=== PATIENT | male | born 1975 | race Caucasian/White ===

== ENCOUNTER → 2017-08-09 | Outpatient (REF) | payer OTHER ==
[2017-08-09 14:43] LABS: CHLAMYDIA DNA AMPLIFICATION NEGATIVE (NEGATIVE); GC DNA AMPLIFICATION NEGATIVE (NEGATIVE)
== END ==
LOC: M LAB REF 11:59
DX: N39.0 Urinary tract infection, site not specified (principal)
CPT/HCPCS: 87186

== ENCOUNTER 2018-07-20 11:25 | Emergency (ER) | payer OTHER ==
[~2018-07-20] VITALS: Ht 167.6 cm; Wt 81.8 kg
[2018-07-20 12:12] LABS: BASO % 0.3 % (0.0-1.0); EOS # 0.1 10^3/uL (0.0-0.50); EOS % 1.6 % (0.0-3.0); HEMATOCRIT 47.1 % (42.0-52.0); HEMOGLOBIN 16.5 g/dl (13.5-17.5); LYMPH # 1.2 10^3/uL (1.5-4.5); LYMPH % 18.5 % (24.0-44.0); MEAN CORPUSCULAR HEMOGLOBIN 31.6 pg (27.0-33.0); MEAN CORPUSCULAR VOLUME 90.2 fl (80.0-96.0); MONO # 0.5 10^3/uL (0.0-0.8); MONO % 7.7 % (0.0-5.0); NEUTROPHILS # 4.6 10^3/uL (1.8-7.7); NEUTROPHILS % 71.4 % (36.0-66.0); PLATELET COUNT, AUTOMATED 232 10^3/uL (150-450); RED BLOOD COUNT 5.22 10^6/uL (4.30-6.10); WHITE BLOOD COUNT 6.4 10^3/uL (4.0-10.0)
[2018-07-20 12:23] LABS: INR 0.98; PROTHROMBIN TIME 13.1 SECONDS (12.1-14.4)
[2018-07-20 12:38] LABS: ALBUMIN 4.4 GM/DL (3.2-5.2); ALT/SGPT 49 U/L (12-78); BILIRUBIN,DIRECT 0.1 MG/DL (0.0-0.2); BILIRUBIN,TOTAL 0.7 MG/DL (0.2-1.0); BLOOD UREA NITROGEN 13 MG/DL (7-18); CALCIUM LEVEL 8.8 MG/DL (8.5-10.1); CARBON DIOXIDE LEVEL 28 MEQ/L (21-32); CHLORIDE LEVEL 103 MEQ/L (98-107); CPK CREATINE PHOSPHOKINASE 283 U/L (39-308); CREATININE FOR GFR 1.13 MG/DL (0.70-1.30); GLOMERULAR FILTRATION RATE > 60.0 (>60); GLUCOSE, FASTING 108 MG/DL (70-100); LIPASE 191 U/L (73-393); MB/CK RELATIVE INDEX 7.88 (< OR =4); NT-PRO BNP 282 PG/ML (<125); POTASSIUM SERUM 3.5 MEQ/L (3.5-5.1); SODIUM LEVEL 138 MEQ/L (136-145); TOTAL PROTEIN 7.7 GM/DL (6.4-8.2); TROPONIN I 1.35 NG/ML (< 0.10)
[2018-07-20] MEDS ORDERED: NITROGLYCERIN 0.4 MG SUBL TABLET SL STA (12:44)
[2018-07-20] MEDS ORDERED: MORPHINE 4 MG/ML 1ML VIAL/SYRINGE (J2270) IV ONE (12:45)
[2018-07-20] MEDS ORDERED: ASPIRIN 81 MG CHEW TABLET PO ONE (12:45)
[2018-07-20 12:48] VITALS: BP 149/78
[2018-07-20] MEDS ORDERED: ONDANSETRON 4MG/2ML VIAL (J2405) IV ONE (13:00)
[2018-07-20] MEDS ORDERED: MORPHINE 2 MG/ML 1ML SYRINGE (J2270) IV ONE (13:00)
[2018-07-20] MEDS ORDERED: NS 500 ML IV ONE (13:00)
[2018-07-20] MEDS ORDERED: HEPARIN SOD (PORCINE) 5000 UNITS/ML VIAL IV PRN (13:30)
[2018-07-20] MEDS ORDERED: HEPARIN DRIP 25,000 UNITS in APPROPRIATE DILUENT 1 EA IV SCH (13:30)
--- NOTE | 2018-07-20 13:39 | ECGEPIP ---
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
[2018-07-20 13:55] LABS: PARTIAL THROMBOPLASTIN TIME 32.6 SECONDS (25.4-37.6)
--- NOTE | 2018-07-20 13:55 | REP ---
Chest one-view HISTORY: Chest pain Comparison: 07/10/2018 The lungs are clear. The heart is normal in size. The pulmonary vasculature is normal in appearance. Impression: No acute disease. Electronically Signed by Chris Galindo MD 07/20/2018 01:46 P
[2018-07-20 14:12] VITALS: BP 154/100
[2018-07-20 14:36] LABS: AMPHETAMINES LEVEL URINE NEGATIVE (NEGATIVE); BARBITURATES URINE NEGATIVE (NEGATIVE); BENZODIAZEPINES URINE NEGATIVE (NEGATIVE); CANNABINOIDS URINE NEGATIVE (NEGATIVE); COCAINE METABOLITE URINE NEGATIVE (NEGATIVE); METHADONE URINE NEGATIVE (NEGATIVE); OPIATES URINE POSITIVE (NEGATIVE); PHENCYCLIDINE URINE NEGATIVE (NEGATIVE)
== END 2018-07-20 14:19 | disposition short-term general hospital (02) ==
LOC: M ED 11:25
DX: I21.4 Non-ST elevation (NSTEMI) myocardial infarction (principal)
CPT/HCPCS: 71045; 80048; 80076; 80307; 82550; 82553; 83690; 83880; 84443; 84484; 85025; 85610; 85730; 93005; 93041; 94760; 96361; 96374; 96375; 96376; 99285; J2270; J2405

== ENCOUNTER 2018-08-10 09:12 | Outpatient (RCR) | payer OTHER ==
[~2018-08-10 09:12] MED LIST: ASPI81TA85 PO; ATOR80TA59 PO; BRIL90TA PO; METO1TAB87 PO; NITR0.4S14 SL
--- NOTE | 2018-08-10 11:13 | CARECAPL ---
Assessment Account #s: Initial Assessment General Diagnoses: Stent, NSTEMI Date of event: Jul 20, 2018 Physician: Char Ruffin MD Allergies: Coded Allergies: No Known Allergies (Unverified , 07/20/18) Date Entered Program: Aug 10, 2018 Risk strat for cardiac event: Low Exercise Date: Aug 10, 2018 Assessment: Initial Assessment Exercise Prescription Plan to build endurance through a monitored exercise program, to educate about cardiac risk factors Modalities initiated: Treadmill (2.5 mts 2.91 rpe 2), Cardio-Strider (will add), Nustep (will add), Arm Aerometer (1.5 mts 3.04 rpe 4), Dumbells (will add), Recumbent Bike (r2 mts 3.9 rpe 3), Elliptimill (will consider) Frequency: 2-3 Duration (Minutes) 8-15 minutes total exercise a day. 30-60 work intervals in minutes. rest intervals in minutes. Functional Capacity Goal Sustained Metabolic Equivalent of a task (MET) goal of 5.0-6.5 for 15-20 minutes. Intensity: 3-Moderate Progression (METS) Increase by: 0.5 METS every: 2 sessions Angina with ex: No Target Heart Rate rest + 35-40 betablocker therapy Resistance Training: Yes Reps: 8-12 Hypertension: Yes Hypertension controlled with: Diet Resting 140/70 Peak Exercise BP 146/80 Meds see below Medications Scheduled Aspirin (Aspir-81), 81 MG PO DAILY, (Reported) Atorvastatin Calcium (Atorvastatin Calcium), 80 MG PO DAILY, (Reported) Metoprolol Tartrate (Metoprolol Tartrate), 25 MG PO BID, (Reported) Nitroglycerin (Nitroglycerin), 0.4 MG SL ASDIRECTED, (Reported) Ticagrelor Base (Brilinta), 90 MG PO BID, (Reported) Target Goals Individual exercise Rx (1) BP 140/90 or 130/80 if DM or CKD (1) Aerobic active 30+min 5 days per week (1) Nutrition Date: Aug 10, 2018 Assessment: Initial Assessment Lipid- med/supplement Atorvastatin Calcium Diabetes Diabetes: No Weight Management Weight (lbs): 176.8 Height (inches): 66 Waist Circumference (Inches): 37 BMI: 28.4 Special Diet: low salt, mediteranean diet, low-fat Alcohol: weekly Alcohol Type: beer Alcohol Amount: 1-2 Diet Access Tool: Rate your plate Score: 40 Intervention [facility] Consult: Yes Nurse/patient discussion: Yes Dietary Goals better choices and smaller portions Target goal LDL-C<100 if triglycerides are >200 Non-HDL-C should be <130 (1) LDL-C<70 for high risk patients (4) HbA1c<7% (1) BMI<25 Waist cir<40in M/<35in F (1) Education Date: Aug 10, 2018 Assessment: Initial Assessment Learning Barriers: ready, learn Knowledge Test Score: 6 Family Support: Yes Tobacco use: No Intervention Education class schedule given: Yes Education: CAD, Risk factors, med compliance, cardiac A&P, Angina S/S, Sexuality Target Goals Complete cessation of tobacco use (1). Psychosocial Date: Aug 10, 2018 Assessment: Initial Assessment Psych Test (Initial/Discharge) Tool Used: CESD Score: 2 Intervention Physician Referral: No Stress Management Class: Yes Uses Stress Management Skills: Yes Education Education: Coping Techniques, S/S depression, Relaxation Techniques Target Goal Assess presence or absence of depression using a valid screening tool (1). Maximize coping skills (2). Positive support system (2). Patient/Program Goal Preventative Medication: Yes Aspirin, Yes Beta blockade, Yes Statin/OTR lipid Lowering Fall Risk Assess: No Provider Assessment Session Number: 1 Provider Assessment: Proceed with rehab Aggie Sosa RN Aug 10, 2018 11:13
== END 2018-08-11 ==
LOC: M CR 09:12
PROVIDERS: ATTEND Internal Medicine Cardiovascular Disease
DX: I22.2 Subsequent non-ST elevation (NSTEMI) myocardial infarction (principal); Z98.61 Coronary angioplasty status

== ENCOUNTER 2018-09-05 09:54 | Outpatient (RCR) | payer OTHER ==
--- NOTE | 2018-09-05 15:57 | CARECAPL ---
Assessment Account #s: Re-Assessment I General Diagnoses: Stent, NSTEMI Date of event: Jul 20, 2018 Physician: Char Ruffin MD Allergies: Coded Allergies: No Known Allergies (Unverified , 07/20/18) Date Entered Program: Aug 10, 2018 Risk strat for cardiac event: Low Exercise Date: Sep 05, 2018 Assessment: Re-Assessment I Exercise Prescription Plan TO EDUCATE AND BUILD ENDURANCE THROUGH MONITORED EXERCISE Modalities initiated: Treadmill (METS=4.12/RPE=3), Arm Aerometer (METS=4.6/ RPE=4), Dumbells (3#/RPE=2), Recumbent Bike (METS=3.9/RPE=4) Frequency: 3 Duration (Minutes) 30-60 minutes total exercise a day. 10-12 work intervals in minutes. 5 MIN PRN rest intervals in minutes. Functional Capacity Goal Sustained Metabolic Equivalent of a task (MET) goal of 5.0-6.5 for 15-20 minutes. Intensity: 3-Moderate Progression (METS) Increase by: METS every: sessions Angina with ex: No Target Heart Rate +35-40 BASED ON BETA KIMBERLI THERAPY Resistance Training: Yes Weight (pounds): 3 Reps: 12-15 Hypertension: Yes Hypertension controlled with: Medication Resting 130/86 Peak Exercise BP 146/84 Medications Scheduled Aspirin (Aspir-81), 81 MG PO DAILY, (Reported) Atorvastatin Calcium (Atorvastatin Calcium), 80 MG PO DAILY, (Reported) Metoprolol Tartrate (Metoprolol Tartrate), 25 MG PO BID, (Reported) Nitroglycerin (Nitroglycerin), 0.4 MG SL ASDIRECTED, (Reported) Ticagrelor Base (Brilinta), 90 MG PO BID, (Reported) Current BP 118/78 Med Change: No Intervention Resistance Training: Yes Education: Self pulse, Ex safety, S/S to report, Low NA diet, BP medication, RPE Scale, Equipment orientation, warm up/cool down, Understand BP, Physical Active Target Goals Individual exercise Rx (1) BP 140/90 or 130/80 if DM or CKD (1) Aerobic active 30+min 5 days per week (1) Nutrition Date: Sep 05, 2018 Assessment: Re-Assessment II Lipid- med/supplement ATORVASTATIN Med Change: No Diabetes Diabetes: No Monitor Blood Sugar at home: No Medication Change: No Weight Management Weight (lbs): 176.8 Special Diet: low salt, mediteranean diet, low-fat Alcohol: weekly Alcohol Type: beer Alcohol Amount: 1-2 Current Weight (pounds): 176.8 Intervention Collection Technician Consult: No Nurse/patient discussion: Yes Diet Class: Yes Referral to Diabetes education: No Referral to lipid clinic: No Referral to weight mangement p: No Education Eating Healthy Target goal LDL-C<100 if triglycerides are >200 Non-HDL-C should be <130 (1) LDL-C<70 for high risk patients (4) HbA1c<7% (1) BMI<25 Waist cir<40in M/<35in F (1) Education Date: Sep 05, 2018 Assessment: Re-Assessment I Learning Barriers: ready Family Support: Yes Tobacco use: No Tobacco Use Smokeless tobacco: No Intervention Referral to smoking cessation: No Individual education and couns: No Tobacco Adjunct: No Education class schedule given: No Attended education classes: No Education: CAD, Risk factors, med compliance, cardiac A&P, Angina S/S, Sexuality Target Goals Complete cessation of tobacco use (1). Psychosocial Date: Sep 05, 2018 Assessment: Re-Assessment I Intervention Physician Consult: No Physician Referral: No Med Change: No Stress Management Class: No Uses Stress Management Skills: Yes Education Education: Coping Techniques, S/S depression, Relaxation Techniques Target Goal Assess presence or absence of depression using a valid screening tool (1). Maximize coping skills (2). Positive support system (2). Patient/Program Goal Preventative Medication: Yes Aspirin, Yes Beta blockade, Yes Statin/OTR lipid Lowering Fall Risk Assess: Yes (NOT A FALL RISK) Provider Assessment Session Number: 6 Provider Assessment: Proceed with rehab Yannick Spencer RN Sep 05, 2018 15:57
== END 2018-09-08 ==
LOC: M CR 09:54
PROVIDERS: ATTEND Internal Medicine Cardiovascular Disease
DX: I22.2 Subsequent non-ST elevation (NSTEMI) myocardial infarction (principal); Z98.61 Coronary angioplasty status

== ENCOUNTER 2018-10-03 10:16 | Outpatient (RCR) | payer OTHER ==
--- NOTE | 2018-09-28 10:51 | CARECAPL ---
Assessment Account #s: Re-Assessment II General Diagnoses: Stent, NSTEMI Date of event: Jul 20, 2018 Physician: Char Ruffin MD Allergies: Coded Allergies: No Known Allergies (Unverified , 07/20/18) Date Entered Program: Sep 05, 2018 Risk strat for cardiac event: Low Exercise Date: Sep 28, 2018 Assessment: Re-Assessment II Exercise Prescription Modalities initiated: Treadmill, Nustep, Arm Aerometer, Dumbells, Recumbent Bike Frequency: 2-3 Duration (Minutes) minutes total exercise a day. work intervals in minutes. rest intervals in minutes. Functional Capacity Goal Sustained Metabolic Equivalent of a task (MET) goal of for minutes. Intensity: 4-Quite a bit Progression (METS) Increase by: METS every: sessions Angina with ex: No Resistance Training: Yes Weight (pounds): 4 Reps: 6-8 Medications Scheduled Aspirin (Aspir-81), 81 MG PO DAILY, (Reported) Atorvastatin Calcium (Atorvastatin Calcium), 80 MG PO DAILY, (Reported) Nitroglycerin (Nitroglycerin), 0.4 MG SL ASDIRECTED, (Reported) Ticagrelor Base (Brilinta), 90 MG PO BID, (Reported) Current BP 122/80 Med Change: No Intervention Home exercise: Type (walking, join local gym, hand weights) Resistance Training: Yes Education: Self pulse, Ex safety, S/S to report, BP medication, RPE Scale, Equipment orientation, warm up/cool down, Understand BP, Physical Active Target Goals Individual exercise Rx (1) BP 140/90 or 130/80 if DM or CKD (1) Aerobic active 30+min 5 days per week (1) Nutrition Date: Sep 28, 2018 Assessment: Re-Assessment II Medication Change: No Current Weight (pounds): 176.8 Education Eating Healthy Target goal LDL-C<100 if triglycerides are >200 Non-HDL-C should be <130 (1) LDL-C<70 for high risk patients (4) HbA1c<7% (1) BMI<25 Waist cir<40in M/<35in F (1) Education Date: Sep 28, 2018 Assessment: Re-Assessment II Family Support: Yes Intervention Education class schedule given: Yes Attended education classes: Yes Education: CAD, Risk factors, med compliance, cardiac A&P, Angina S/S, Sexuality Target Goals Complete cessation of tobacco use (1). Psychosocial Date: Sep 28, 2018 Assessment: Re-Assessment II Stress Management Class: Yes Uses Stress Management Skills: Yes Education Education: Coping Techniques, S/S depression, Relaxation Techniques Target Goal Assess presence or absence of depression using a valid screening tool (1). Maximize coping skills (2). Positive support system (2). Provider Assessment Session Number: 12 Provider Assessment: No changes Aggie Sosa RN Sep 28, 2018 10:51
== END 2018-10-09 ==
LOC: M CR 10:16
PROVIDERS: ATTEND Internal Medicine Cardiovascular Disease
DX: Z98.61 Coronary angioplasty status (principal)

== ENCOUNTER 2018-10-19 15:13 | Outpatient (RCR) | payer OTHER ==
--- NOTE | 2018-10-26 09:23 | CARECAPL ---
Assessment Account #s: Re-Assessment II (reassessment III) General Diagnoses: Stent, NSTEMI Date of event: Jul 20, 2018 Physician: Char Ruffin MD Allergies: Coded Allergies: No Known Allergies (Unverified , 07/20/18) Date Entered Program: Sep 05, 2018 Risk strat for cardiac event: Low Exercise Date: Oct 26, 2018 Assessment: Re-Assessment II (reassessment III) Exercise Prescription Plan to educate regarding the risk of cardiac disease and exercise through a monitored program Modalities initiated: Treadmill (3.5/2.5 MTS 5.13 RPE 4), Cardio-Strider (R4 MTS 3.1 RPE 4), Arm Aerometer (2.0 MTS 4.81 RPE 4), Dumbells, Recumbent Bike (R4 MTS 4.1 RPE 4 ) Duration (Minutes) 30-60minutes total exercise a day. 6-15 work intervals in minutes. prn rest intervals in minutes. Functional Capacity Goal Sustained Metabolic Equivalent of a task (MET) goal of for minutes. Intensity: 4-Quite a bit Progression (METS) Increase by: METS every: sessions Angina with ex: No Resistance Training: Yes Weight (pounds): 5 Reps: 8-12 Medications Scheduled Aspirin (Aspir 81), 81 MG PO DAILY, (Reported) Nitroglycerin (Nitroglycerin), 0.4 MG SL ASDIRECTED, (Reported) Ticagrelor Base (Brilinta), 90 MG PO BID, (Reported) Current BP 142/80 Med Change: No Intervention Home exercise: Type (local gym, weights, walking), Frequency (5-7 ) Resistance Training: Yes Education: Self pulse, Ex safety, S/S to report, Low NA diet, BP medication, RPE Scale, Equipment orientation, warm up/cool down, Understand BP, Physical Active Education Goals Met: Yes Target Goals Individual exercise Rx (1) BP 140/90 or 130/80 if DM or CKD (1) Aerobic active 30+min 5 days per week (1) Nutrition Date: Oct 26, 2018 Assessment: Re-Assessment II (reassessment III) Diabetes Diabetes: No Monitor Blood Sugar at home: No Current Weight (pounds): 169.8 Intervention Diet Class: Yes Referral to Diabetes education: No Referral to lipid clinic: No Referral to weight mangement p: No Education Eating Healthy Education Goals Met: Yes Target goal LDL-C<100 if triglycerides are >200 Non-HDL-C should be <130 (1) LDL-C<70 for high risk patients (4) HbA1c<7% (1) BMI<25 Waist cir<40in M/<35in F (1) Education Date: Oct 26, 2018 Assessment: Re-Assessment II (reassessment III) Family Support: Yes Tobacco use: No Intervention Referral to smoking cessation: No Individual education and couns: No Tobacco Adjunct: No Education class schedule given: No Attended education classes: Yes Education: CAD, Risk factors, med compliance, cardiac A&P, Angina S/S, Sexuality Education Goals Met: Yes Target Goals Complete cessation of tobacco use (1). Psychosocial Date: Oct 26, 2018 Assessment: Re-Assessment II (reassessment III) Intervention Physician Consult: No Physician Referral: No Med Change: No Stress Management Class: Yes Uses Stress Management Skills: Yes Education Education: Coping Techniques, S/S depression, Relaxation Techniques Education Goals Met: Yes Target Goal Assess presence or absence of depression using a valid screening tool (1). Maximize coping skills (2). Positive support system (2). Provider Assessment Session Number: 18 Provider Assessment: No changes Aggie Sosa RN Oct 26, 2018 09:23
--- NOTE | 2018-11-03 11:06 | CARECAPL ---
Assessment Account #s: Re-Assessment II (DISCHARGE ASSESSMENT) General Diagnoses: NSTEMI, STEMI Date of event: Jul 20, 2018 Physician: Char Ruffin MD Allergies: Coded Allergies: No Known Allergies (Unverified , 07/20/18) Date Entered Program: Sep 05, 2018 Risk strat for cardiac event: Low Exercise Assessment: Followup/Discharge Exercise Prescription Plan TO EDUCATE AND BUILD ENDURANCE THROUGH MONITORED EXERCISE Modalities initiated: Treadmill (METS=5.13/RPE=4), Cardio-Strider (METS=3.1/RPE=4), Arm Aerometer (METS=4.81/RPE=4), Dumbells (5#/RPE=3.5), Recumbent Bike (METS=4.1/RPE=4) Frequency: 3 Duration (Minutes) 30-60 minutes total exercise a day. 10-15 work intervals in minutes.5 MIN 5 MIN PRN rest intervals in minutes. Functional Capacity Goal Sustained Metabolic Equivalent of a task (MET) goal of for minutes. Intensity: 3-Moderate Progression (METS) Increase by: METS every: sessions Angina with ex: No Resistance Training: Yes Reps: 12-15 Hypertension: Yes Hypertension controlled with: Medication Resting 124/80 Peak Exercise BP 160/90 Medications Scheduled Aspirin (Aspir 81), 81 MG PO DAILY, (Reported) Nitroglycerin (Nitroglycerin), 0.4 MG SL ASDIRECTED, (Reported) Ticagrelor Base (Brilinta), 90 MG PO BID, (Reported) Current BP 128/90 Med Change: No Intervention Home exercise: Type (LOCAL GYM,WEIGHTS,WALKING), Frequency (3-5 DAYS PER WEEK), Duration (30-60 MINUTES) Resistance Training: Yes Education: Self pulse, Ex safety, S/S to report, Low NA diet, BP medication, RPE Scale, Equipment orientation, warm up/cool down, Understand BP, Physical Active Education Goals Met: Yes Target Goals Individual exercise Rx (1) BP 140/90 or 130/80 if DM or CKD (1) Aerobic active 30+min 5 days per week (1) Nutrition Date: Nov 03, 2018 Assessment: Followup/Discharge Med Change: No Diabetes Diabetes: No Monitor Blood Sugar at home: No Medication Change: No Weight Management Weight (lbs): 169.8 Special Diet: low salt, low-fat Alcohol: special Diet Access Tool: Rate your plate (NOT DONE ON DISCHARGE) Current Weight (pounds): 169.8 Intervention Social Secretary Consult: No Nurse/patient discussion: Yes Dietary Goals TO MAKE HEART HEALTHY CHOICES Diet Class: No Referral to Diabetes education: No Referral to lipid clinic: No Referral to weight mangement p: No Education Eating Healthy Education Goals Met: Yes Target goal LDL-C<100 if triglycerides are >200 Non-HDL-C should be <130 (1) LDL-C<70 for high risk patients (4) HbA1c<7% (1) BMI<25 Waist cir<40in M/<35in F (1) Education Date: Nov 03, 2018 Assessment: Followup/Discharge Learning Barriers: ready Family Support: Yes Tobacco use: No Tobacco Use Smokeless tobacco: No Intervention Referral to smoking cessation: No Individual education and couns: No Tobacco Adjunct: No Education class schedule given: No Education: CAD, Risk factors, med compliance, cardiac A&P, Angina S/S, Sexuality Education Goals Met: Yes Target Goals Complete cessation of tobacco use (1). Psychosocial Date: Nov 03, 2018 Assessment: Followup/Discharge Psych Test (Initial/Discharge) Tool Used: CESD (NOT DONE ON DISCHARGE) Intervention Physician Consult: No Physician Referral: No Stress Management Class: No Uses Stress Management Skills: Yes Education Education: Coping Techniques, S/S depression, Relaxation Techniques Education Goals Met: Yes Target Goal Assess presence or absence of depression using a valid screening tool (1). Maximize coping skills (2). Positive support system (2). Patient/Program Goal Preventative Medication: Yes Aspirin Fall Risk Assess: Yes (NOT A FALL RISK) Provider Assessment Session Number: 18 Yannick Spencer RN Nov 03, 2018 11:06
== END 2018-11-08 ==
LOC: M CR 15:13
PROVIDERS: ATTEND Internal Medicine Cardiovascular Disease
DX: I22.2 Subsequent non-ST elevation (NSTEMI) myocardial infarction (principal); Z98.61 Coronary angioplasty status

== ENCOUNTER 2023-01-21 06:51 | Day surgery (SDC) | payer OTHER ==
[~2023-01-21] VITALS: Ht 167.6 cm; Wt 81.6 kg
[~2023-01-21 06:51] MED LIST changes: +ASPI81TA26 PO; -ASPI81TA85 PO; +ASPI81TA86 PO; +LOSA25TA13 PO; +NS 1,000 ML IV ONE; +OMEG10002 PO
[2023-01-21] MEDS ORDERED: propofoL 200 MG/20 ML VIAL As Ordered ONE (06:54)
[2023-01-21] MEDS ORDERED: LIDOCAINE 2% 100MG/5ML SDV (FOR ANES.) As Ordered ONE (06:54)
[2023-01-21 07:39] VITALS: TEMP 98.5
[2023-01-21 08:06] VITALS: BP 149/91; O2SAT 98
== END 2023-01-21 08:07 | disposition home or self-care (01) ==
LOC: M OPP 06:51
PROVIDERS: ATTEND Surgery
DX: Z12.11 Encounter for screening for malignant neoplasm of colon (principal); K57.30 Diverticulosis of large intestine without perforation or abscess without bleeding; Z79.02 Long term (current) use of antithrombotics/antiplatelets; Z79.82 Long term (current) use of aspirin; Z79.899 Other long term (current) drug therapy

== ENCOUNTER → 2025-06-28 | Outpatient (CLI) | payer OTHER ==
[~2025-06-28] MED LIST changes: -NS 1,000 ML IV ONE
== END ==
LOC: M WUC 11:45
DX: R07.9 Chest pain, unspecified (principal)

== ENCOUNTER → 2025-07-09 | Outpatient (REF) | payer OTHER ==
[2025-07-09 13:40] LABS: CK-MB VALUE MASS 1.9 NG/ML (<3.6); CPK CREATINE PHOSPHOKINASE 102.0 U/L (46-171); MB/CK RELATIVE INDEX 1.86 (< OR =4)
== END ==
LOC: M LAB REF 12:02
PROVIDERS: ATTEND Family Medicine
DX: R07.89 Other chest pain (principal)